=== PATIENT | male | born 1945 | race Caucasian/White ===

== ENCOUNTER 2017-10-16 20:00 | Outpatient (CLI) | payer MEDICARE ==
[~2017-10-16 20:00] MED LIST: ALBU8.5H2 IH; ALPR0.5T PO; CCLB10TRX PO; CEFD300C3 PO; CITA20TA4 PO; DIPH25TA82 PO; DOXY100C2 PO; FEXO-14 PO; FINA5TAB6 PO; GABA-486 PO; GLIM4TAB PO; LOSA50TA6 PO; NAPR-689 PO; OXYC-465 PO; QTP25T PO; ZOLP12.5 PO
== END 2017-10-17 06:30 | disposition home or self-care (01) ==
LOC: SLEEP 20:00
PROVIDERS: ATTEND Nurse Practitioner Community Health
DX: G47.33 Obstructive sleep apnea (adult) (pediatric) (principal)
CPT/HCPCS: 95810